=== PATIENT | female | born 1940 | race Caucasian/White ===

== ENCOUNTER 2019-09-01 08:06 | Outpatient (RCR) | payer MEDICARE, SELFPAY ==
[2019-09-01 08:46] LABS: Basophils % 0.8 %; Eosinophils # 0.1 10^3/uL (0.0-0.8); Eosinophils % 2.6 %; Hematocrit 43.7 % (37.0-47.0); Hemoglobin 14.5 g/dL (11.5-15.3); Lymphocytes # 1.6 10^3/uL (0.8-4.8); Lymphocytes % 30.1 %; Mean Corpuscular HGB Conc 33.2 g/dL (30.0-36.0); Mean Corpuscular Hemoglobin 31.4 pg (28.0-34.0); Mean Corpuscular Volume 94.6 fL (81-99); Mean Platelet Volume 10.1 fL (7.4-10.4); Monocytes # 0.4 10^3/uL (0.2-0.9); Monocytes % 7.7 %; Neutrophils # 3.1 10^3/uL (1.8-7.7); Neutrophils % 58.2 %; Nucleated Red Blood Cells % 0 %; Platelet Count 215 10^3/cmm (130-400); Red Blood Count 4.62 10^6/uL (4.1-5.3); Red Cell Distribution Width 13.2 % (12.1-15.1); White Blood Count 5.3 10^3/uL (4.0-10.0)
[2019-09-01 08:59] LABS: Alanine Aminotransferase 14 U/L (0-33); Albumin Level 4.7 g/dL (3.5-5.2); Alkaline Phosphatase 56 IU/L (35-105); Anion Gap 14.6 (5-19); Aspartate Amino Transferase 15 U/L (0-32); Blood Urea Nitrogen 15 mg/dL (8-23); Calcium 10.1 mg/Dl (8.8-10.2); Carbon Dioxide 30 mmol/L (22-29); Chloride 99 mmol/L (98-107); Globulin 2.4 g/dL (1.3-4.6); Glucose 117 mg/dL (74-106); Potassium 3.6 mmol/L (3.5-5.1); Sodium 140 mmol/L (136-145); Total Protein 7.1 g/dL (6.6-8.7)
--- NOTE | 2019-09-01 12:52 | ONC FU_ITS ---
Dr. Hansen follow up note Patient: Yuly Burris Unit #: [id number]: 1940 Dicatated By: Katalina Hansen M.D.Date of Visit:Sep 01, 2019 Onc Med Follow-up/Prog Note History of Present Illness: Mr. Sandra Hwang, is a 78-year-old female who recently noticed mass in her right breast about 3 months ago underwent bilateral mammogram with right breast sonogram on 09/16/2018 which showed BI-RADS Category 5 suggestive of multifocal malignancy of right breast e.g. 12:00 position right breast, near nipple is shadowing hypoechoic mass with irregular margins 1.6 x 1.6 x 2.2 cm. 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 ER/GA HER-2/vahid negative. X Patient denies any nipple discharge or retraction. But recently started having right subscapular pain/discomfort and no history of trauma to her right upper back. CT PET scan done on 10/29/2018 showed there is a 1.2 x 1.6 cm sub-areolar right breast lesion with SUV of 4.5 and no other breast lesion or distant metastases seen. Patient underwent right simple mastectomy with right axillary sentinel lymph node biopsy on 11/03/2018 and final pathology report showed multifocal disease first tumor, infiltrating ductal carcinoma with prominent DCIS size of tumor 2.5 x 1.5 cm with clear margin Second tumor infiltrating ductal carcinoma size of tumor 1 x 1 cm with clear margin her tumor infiltrating ductal carcinoma with prominent DCIS complement size of tumor 1.3 x 0.7 cm with clear margins 0 out of 3 exited lymph node showed metastatic disease. As a standard of care, Patient was offered adjuvant chemotherapy, but patient declined AGAINST MEDICAL ADVICE knowing the risk versus benefits Patient has history of hormonal supplement with Premarin for 10 years now she is completely off for the last 3 years, she has history of hysterectomy Came for follow-up, denies any specific complaints, no nausea vomiting, no fever or chills, no diarrhea constipation, no new bony pains, no jaundice, no headaches or blurred vision double vision Medications: Calcium 500 + D 1 Tablet (of 500-125 mg - Units) Oral daily, Glucosamine 1 Tablet Oral daily, HydroCHLOROthiazide 1 Tablet (of 12.5 mg) Oral daily, Multiple Vitamins/Womens 1 Tablet Oral daily, Red Yeast Rice 1 Capsule (of 600 mg) Oral daily Allergies: No Known Allergies. Review of Systems: Constitutional - Appetite is good and weight is stable, ENMT - No sinus congestion/drainage. No mouth sores. No sore throat or difficulty swallowing, Hematologic/Lymphatic - Pt reports that she bruises easily, Respiratory - No shortness of breath. No cough. No pleuritic pain or hemoptysis, Cardiovascular - No angina pain. No palpitations, Gastrointestinal - No nausea or vomiting. No heartburn or acid reflux. No diarrhea or constipation. No blood in the stool or black stools, Genitourinary (F) - No dysuria or hematuria. No urinary frequency. No urgency or incontinence, Musculoskeletal - No joint or bone pain, Neurologic - No headache or dizziness. No numbness/paresthesias or other focal neurologic symptoms, Psychiatric - Positive for anxiety and depression. No insomnia. Vital Signs: Performed on Sep 01, 2019 09:51 Height - 65.00 in Weight - 161.6 lbs (HIGH) BSA - 1.81 sq.m BMI - 26.89 Temperature - 98.0 F (LOW) Pulse - 78 /min Respiration - 20 /min BP - 156/82 mm(hg) (HIGH) O2 Sat - 92 % (LOW) Pain - 0 Performance Status: 0 - Fully active, able to carry on all predisease activities without restrictions. (ECOG) Physical Examination: Respiratory - Lungs are clear to auscultation without rhonchi or wheezing, Cardiovascular - regular rate and rythem, Extremities - no edema. Lab/Imaging: Most recent lab results are not available for this patient. 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 And all of them were triple negative e.g. ER/GA negative, HER-2/vahid negative. CT PET scan done on 10/29/2018 showed 1.2 x 1.6 cm subareolar right breast lesion with SUV 4.5, no other breast lesion or distant metastases seen. Status post right simple mastectomy with axillary lymph node dissection final pathology report showed multifocal disease First tumor with prominent these his complaint, 2.5 x 1.5 cm with a clear margin Second tumor infiltrating ductal carcinoma, 1.0 x 1.0 cm clear margins T2 Her tumor infiltrating ductal carcinoma, with prominent DCIS component 1.3 x 0.7 cm, with clear margins next 0 out of 3 right axillary lymph node nodes showed metastatic disease N0 Right subscapular pain/discomfort for the last 2 months etiology could be muscular skeleton but metastatic disease cannot be ruled out. Being with triple negative disease Patient was offered adjuvant chemotherapy but patient declined and AGAINST MEDICAL ADVICE rather preferred observation alone Plan: Discussed with patient regarding her labs white blood count 5.3 hemoglobin 14.5 crit 43.7 platelets 215,000 CMP within normal limits Clinically, patient doing well, no signs symptom suggestive of recurrence of disease. Patient has triple negative breast cancer and declined adjuvant chemotherapy rather opted for observation alone, now being observed with no signs symptom suggestive of recurrence of disease and lab workup showed no abnormality. We'll continue to monitor she will return to clinic in 6 months with CMP only unless patient dropped new symptoms. Signed By: Katalina Hansen M.D. <<Signature on File>>
== END 2019-09-22 23:59 | disposition home or self-care (01) ==
LOC: ONCMED 08:06
PROVIDERS: Family Provider Family Medicine; PCP Family Medicine; Visit Provider Internal Medicine Hematology & Oncology
DX: C50.811 Malignant neoplasm of overlapping sites of right female breast (principal); Z17.1 Estrogen receptor negative status [ER-]; Z53.29 Procedure and treatment not carried out because of patient's decision for other reasons; Z90.11 Acquired absence of right breast and nipple
CPT/HCPCS: 80053; 85025; 99213; G0463

== ENCOUNTER 2020-03-01 09:22 | Outpatient (CLI) | payer MEDICARE, SELFPAY ==
[2020-03-01 10:03] LABS: Basophils # 0.1 10^3/uL (0.0-0.1); Eosinophils # 0.1 10^3/uL (0.0-0.8); Eosinophils % 1.7 %; Hematocrit 42.6 % (37.0-47.0); Hemoglobin 13.8 g/dL (11.5-15.3); Lymphocytes # 1.3 10^3/uL (0.8-4.8); Mean Corpuscular HGB Conc 32.4 g/dL (30.0-36.0); Mean Corpuscular Hemoglobin 30.3 pg (28.0-34.0); Mean Corpuscular Volume 93.4 fL (81-99); Monocytes # 0.4 10^3/uL (0.2-0.9); Monocytes % 7.8 %; Neutrophils # 2.97 10^3/uL (1.8-7.7); Neutrophils % 62.3 %; Nucleated Red Blood Cells % 0 %; Platelet Count 206 10^3/cmm (130-400); Red Blood Count 4.56 10^6/uL (4.1-5.3); Red Cell Distribution Width 13.2 % (12.1-15.1); White Blood Count 4.8 10^3/uL (4.0-10.0)
[2020-03-01 10:17] LABS: Alanine Aminotransferase 14 U/L (0-33); Albumin Level 4.6 g/dL (3.5-5.2); Alkaline Phosphatase 52 IU/L (35-105); Anion Gap 13.6 (5-19); Aspartate Amino Transferase 16 U/L (0-32); Blood Urea Nitrogen 13 mg/dL (8-23); Calcium 9.9 mg/dL (8.5-10.5); Carbon Dioxide 28 mmol/L (22-29); Chloride 104 mmol/L (98-107); Globulin 2.6 g/dL (1.3-4.6); Glucose 116 mg/dL (65-115); Osmolality Calculated 291 mOsm/kg (285-295); Potassium 3.6 mmol/L (3.5-5.1); Sodium 142 mmol/L (136-145); Total Bilirubin 1.1 mg/dL (0.15-1.2); Total Protein 7.2 g/dL (6.6-8.7)
--- NOTE | 2020-03-01 11:36 | ONC FU_ITS ---
Dr. Hansen follow up note Patient: Yuly Burris Unit #: [id number]: 1940 Dicatated By: Katalina Hansen M.D.Date of Visit:Mar 01, 2020 Onc Med Follow-up/Prog Note History of Present Illness: Mr. Sandra Hwang, is a 79-year-old female who recently noticed mass in her right breast about 3 months ago underwent bilateral mammogram with right breast sonogram on 09/16/2018 which showed BI-RADS Category 5 suggestive of multifocal malignancy of right breast e.g. 12:00 position right breast, near nipple is shadowing hypoechoic mass with irregular margins 1.6 x 1.6 x 2.2 cm. 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 ER/AK HER-2/vahid negative. X Patient denies any nipple discharge or retraction. But recently started having right subscapular pain/discomfort and no history of trauma to her right upper back. CT PET scan done on 10/29/2018 showed there is a 1.2 x 1.6 cm sub-areolar right breast lesion with SUV of 4.5 and no other breast lesion or distant metastases seen. Patient underwent right simple mastectomy with right axillary sentinel lymph node biopsy on 11/03/2018 and final pathology report showed multifocal disease first tumor, infiltrating ductal carcinoma with prominent DCIS size of tumor 2.5 x 1.5 cm with clear margin Second tumor infiltrating ductal carcinoma size of tumor 1 x 1 cm with clear margin her tumor infiltrating ductal carcinoma with prominent DCIS complement size of tumor 1.3 x 0.7 cm with clear margins 0 out of 3 exited lymph node showed metastatic disease. As a standard of care, Patient was offered adjuvant chemotherapy, but patient declined AGAINST MEDICAL ADVICE knowing the risk versus benefits Patient has history of hormonal supplement with Premarin for 10 years now she is completely off for the last 3 years, she has history of hysterectomy Came for follow-up, denies any specific complaints today, no fever chills, no nausea or vomiting, no new bony pains, appetite is good but lost some weight because of watching diet and exercising regularly. No jaundice no headaches blurred vision or double vision. Medications: Calcium 500 + D 1 Tablet (of 500-125 mg - Units) Oral daily, Glucosamine 1 Tablet Oral daily, HydroCHLOROthiazide 1 Tablet (of 12.5 mg) Oral daily, Multiple Vitamins/Womens 1 Tablet Oral daily, Red Yeast Rice 1 Capsule (of 600 mg) Oral daily Allergies: No Known Allergies. Review of Systems: Constitutional - Appetite is good and weight is stable, ENMT - No sinus congestion/drainage. No mouth sores. No sore throat or difficulty swallowing, Hematologic/Lymphatic - Pt reports that she bruises easily, Respiratory - No shortness of breath. No cough. No pleuritic pain or hemoptysis, Cardiovascular - No angina pain. No palpitations, Gastrointestinal - No nausea or vomiting. No heartburn or acid reflux. No diarrhea or constipation. No blood in the stool or black stools, Genitourinary (F) - No dysuria or hematuria. No urinary frequency. No urgency or incontinence, Musculoskeletal - No joint or bone pain, Neurologic - No headache or dizziness. No numbness/paresthesias or other focal neurologic symptoms, Psychiatric - Positive for anxiety and depression. No insomnia. Vital Signs: Performed on Mar 01, 2020 11:11 Height - 65.00 in Weight - 150.8 lbs (LOW) BSA - 1.75 sq.m BMI - 25.09 Temperature - 97.6 F (LOW) Pulse - 90 /min Respiration - 16 /min BP - 173/85 mm(hg) (HIGH) O2 Sat - 95 % (LOW) Pain - 0 Performance Status: 0 - Fully active, able to carry on all predisease activities without restrictions. (ECOG) Physical Examination: Respiratory - Lungs are clear, Cardiovascular - Regular rate and rhythm of heart, Gastrointestinal - Soft, bowel sounds present, Extremities - No visible edema No axillary lymphadenopathy, no obvious L breast mass. Lab/Imaging: Most recent lab results are not available for this patient. 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 And all of them were triple negative e.g. ER/AK negative, HER-2/vahid negative. CT PET scan done on 10/29/2018 showed 1.2 x 1.6 cm subareolar right breast lesion with SUV 4.5, no other breast lesion or distant metastases seen. Status post right simple mastectomy with axillary lymph node dissection final pathology report showed multifocal disease First tumor with prominent these his complaint, 2.5 x 1.5 cm with a clear margin Second tumor infiltrating ductal carcinoma, 1.0 x 1.0 cm clear margins T2 Her tumor infiltrating ductal carcinoma, with prominent DCIS component 1.3 x 0.7 cm, with clear margins next 0 out of 3 right axillary lymph node nodes showed metastatic disease N0 Right subscapular pain/discomfort for the last 2 months etiology could be muscular skeleton but metastatic disease cannot be ruled out. Being with triple negative disease Patient was offered adjuvant chemotherapy but patient declined and AGAINST MEDICAL ADVICE rather preferred observation alone Plan: Discussed with patient regarding her labs white blood count 4.8 hemoglobin 13.8 crit 42.6 platelets 206,000 CMP within normal limits Clinically, patient is doing well with no signs symptoms suggestive of recurrence of disease. Now being monitored. She will return to clinic in 6 months with CBC CMP and follow-up mammogram Signed By: Katalina Hansen M.D. <<Signature on File>>
== END 2020-03-01 09:23 | disposition home or self-care (01) ==
LOC: ONCMED 09:26
PROVIDERS: PCP Family Medicine; Visit Provider Internal Medicine Hematology & Oncology
DX: Z08 Encounter for follow-up examination after completed treatment for malignant neoplasm (principal); Z85.3 Personal history of malignant neoplasm of breast; Z90.11 Acquired absence of right breast and nipple; Z91.14 Patient's other noncompliance with medication regimen
CPT/HCPCS: 36415; 80053; 85025; G0463

== ENCOUNTER 2020-09-02 08:19 | Outpatient (CLI) | payer MEDICARE, SELFPAY ==
[2020-09-02 08:43] LABS: Basophils # 0.1 10^3/uL (0.0-0.1); Basophils % 0.9 %; Eosinophils # 0.1 10^3/uL (0.0-0.8); Eosinophils % 2.6 %; Hemoglobin 14.6 g/dL (11.5-15.3); Lymphocytes # 1.6 10^3/uL (0.8-4.8); Lymphocytes % 29.6 %; Mean Corpuscular HGB Conc 32.4 g/dL (30.0-36.0); Mean Corpuscular Volume 92.4 fL (81-99); Mean Platelet Volume 9.8 fL (7.4-10.4); Monocytes # 0.4 10^3/uL (0.2-0.9); Monocytes % 7.1 %; Neutrophils # 3.19 10^3/uL (1.8-7.7); Neutrophils % 59.4 %; Nucleated Red Blood Cells % 0 %; Platelet Count 209 10^3/cmm (130-400); Red Blood Count 4.87 10^6/uL (4.1-5.3); Red Cell Distribution Width 13.1 % (12.1-15.1); White Blood Count 5.4 10^3/uL (4.0-10.0)
[2020-09-02 09:01] LABS: Alanine Aminotransferase 15 U/L (0-33); Albumin Level 4.5 g/dL (3.5-5.2); Alkaline Phosphatase 60 IU/L (35-105); Anion Gap 14.7 (5-19); Aspartate Amino Transferase 14 U/L (0-32); Blood Urea Nitrogen 17 mg/dL (8-23); Calcium 9.5 mg/dL (8.5-10.5); Carbon Dioxide 28 mmol/L (22-29); Chloride 101 mmol/L (98-107); Globulin 2.9 g/dL (1.3-4.6); Glucose 115 mg/dL (65-115); Osmolality Calculated 292 mOsm/kg (285-295); Potassium 3.7 mmol/L (3.5-5.1); Sodium 140 mmol/L (136-145); Total Bilirubin 0.8 mg/dL (0.15-1.2); Total Protein 7.4 g/dL (6.6-8.7)
--- NOTE | 2020-09-02 14:38 | ONC FU_ITS ---
Dr. Hansen follow up note Patient: Yuly Burris Unit #: [id number]: 1940 Dicatated By: Katalina Hansen M.D.Date of Visit:Sep 02, 2020 Onc Med Follow-up/Prog Note History of Present Illness: Mr. Sandra Hwang, is a 79-year-old female who recently noticed mass in her right breast about 3 months ago underwent bilateral mammogram with right breast sonogram on 09/16/2018 which showed BI-RADS Category 5 suggestive of multifocal malignancy of right breast e.g. 12:00 position right breast, near nipple is shadowing hypoechoic mass with irregular margins 1.6 x 1.6 x 2.2 cm. 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 ER/NC HER-2/vahid negative. X Patient denies any nipple discharge or retraction. But recently started having right subscapular pain/discomfort and no history of trauma to her right upper back. CT PET scan done on 10/29/2018 showed there is a 1.2 x 1.6 cm sub-areolar right breast lesion with SUV of 4.5 and no other breast lesion or distant metastases seen. Patient underwent right simple mastectomy with right axillary sentinel lymph node biopsy on 11/03/2018 and final pathology report showed multifocal disease first tumor, infiltrating ductal carcinoma with prominent DCIS size of tumor 2.5 x 1.5 cm with clear margin Second tumor infiltrating ductal carcinoma size of tumor 1 x 1 cm with clear margin her tumor infiltrating ductal carcinoma with prominent DCIS complement size of tumor 1.3 x 0.7 cm with clear margins 0 out of 3 exited lymph node showed metastatic disease. As a standard of care, Patient was offered adjuvant chemotherapy, but patient declined AGAINST MEDICAL ADVICE knowing the risk versus benefits Patient has history of hormonal supplement with Premarin for 10 years now she is completely off for the last 3 years, she has history of hysterectomy Came for follow-up, denies any specific complaints, no fever chills, no nausea or vomiting, no diarrhea or constipation, no new bony pains, Appetite is good, weight is stable Medications: Calcium 500 + D 1 Tablet (of 500-125 mg - Units) Oral daily, Glucosamine 1 Tablet Oral daily, HydroCHLOROthiazide 1 Tablet (of 12.5 mg) Oral daily, Multiple Vitamins/Womens 1 Tablet Oral daily, Red Yeast Rice 1 Capsule (of 600 mg) Oral daily Allergies: No Known Allergies. Review of Systems: Review of Systems is not available for this patient. Vital Signs: Performed on Sep 02, 2020 10:02 Height - 65.00 in Weight - 158.7 lbs (HIGH) BSA - 1.79 sq.m BMI - 26.41 Temperature - 97.9 F (LOW) Pulse - 83 /min Respiration - 18 /min BP - 199/97 mm(hg) (HIGH) O2 Sat - 96 % Pain - 0 Performance Status: 0 - Fully active, able to carry on all predisease activities without restrictions. (ECOG) Physical Examination: Respiratory - Lungs are clear to auscultation, Cardiovascular - Regular rate and rhythm of heart, Gastrointestinal - Soft, bowel sounds present, Extremities - No visible edema. Lab/Imaging: Most recent lab results are not available for this patient. 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 And all of them were triple negative e.g. ER/NC negative, HER-2/vahid negative. CT PET scan done on 10/29/2018 showed 1.2 x 1.6 cm subareolar right breast lesion with SUV 4.5, no other breast lesion or distant metastases seen. Status post right simple mastectomy with axillary lymph node dissection final pathology report showed multifocal disease First tumor with prominent these his complaint, 2.5 x 1.5 cm with a clear margin Second tumor infiltrating ductal carcinoma, 1.0 x 1.0 cm clear margins T2 Her tumor infiltrating ductal carcinoma, with prominent DCIS component 1.3 x 0.7 cm, with clear margins next 0 out of 3 right axillary lymph node nodes showed metastatic disease N0 Right subscapular pain/discomfort for the last 2 months etiology could be muscular skeleton but metastatic disease cannot be ruled out. Being with triple negative disease Patient was offered adjuvant chemotherapy but patient declined and AGAINST MEDICAL ADVICE rather preferred observation alone Plan: Discussed with patient regarding her labs white blood count 5.4 hemoglobin 14.6 hematocrit 45 platelets 209,000 CMP within normal limits Clinically, patient doing well with no new signs symptoms just of recurrence of disease. Patient was supposed to get follow-up mammogram prior to this visit but somehow it was not scheduled, we will schedule her mammogram and then she will return to clinic in 6 months with CBC CMP. Signed By: Katalina Hansen M.D. <<Signature on File>>
== END 2020-09-02 08:20 | disposition home or self-care (01) ==
PROVIDERS: PCP Family Medicine; Visit Provider Internal Medicine Hematology & Oncology
DX: C50.811 Malignant neoplasm of overlapping sites of right female breast (principal); Z17.1 Estrogen receptor negative status [ER-]; Z90.11 Acquired absence of right breast and nipple
CPT/HCPCS: 36415; 80053; 85025; G0463

== ENCOUNTER 2020-09-17 10:08 | Outpatient (CLI) | payer MEDICARE, SELFPAY ==
--- NOTE | 2020-09-17 10:14 | MM_ITS ---
WS: [id number] DIAGNOSTIC LEFT DIGITAL MAMMOGRAM WITH CAD HISTORY: HX RT BREAST CA COMPARISON: 09/16/2018 and 12/20/2014 Technique: CC, MLO and ML views. Breast composition: There are scattered areas of fibroglandular density. Normal fibroglandular patte rn. Benign breast arterial calcifications. MM/[place] [id number] IMPRESSION: BI-RADS: 2-Benign FOLLOW UP: 1 Year Follow-up
== END 2020-09-17 10:09 | disposition home or self-care (01) ==
LOC: RADSHAW 10:12
PROVIDERS: PCP Family Medicine; Visit Provider Internal Medicine Hematology & Oncology
DX: Z85.3 Personal history of malignant neoplasm of breast (principal)
CPT/HCPCS: 77065

== ENCOUNTER 2021-03-12 11:29 | Outpatient (CLI) | payer MEDICARE, SELFPAY ==
[2021-03-12 12:20] LABS: Basophils % 0.8 %; Eosinophils # 0.1 10^3/uL (0.0-0.8); Eosinophils % 2.2 %; Hematocrit 42.1 % (37.0-47.0); Hemoglobin 13.7 g/dL (11.5-15.3); Lymphocytes # 1.5 10^3/uL (0.8-4.8); Lymphocytes % 29.6 %; Mean Corpuscular HGB Conc 32.5 g/dL (30.0-36.0); Mean Corpuscular Hemoglobin 30.4 pg (28.0-34.0); Mean Corpuscular Volume 93.3 fL (81-99); Mean Platelet Volume 10.5 fL (7.4-10.4); Monocytes # 0.4 10^3/uL (0.2-0.9); Monocytes % 7.9 %; Neutrophils # 2.97 10^3/uL (1.8-7.7); Neutrophils % 58.9 %; Nucleated Red Blood Cells % 0 %; Platelet Count 213 10^3/cmm (130-400); Red Blood Count 4.51 10^6/uL (4.1-5.3); Red Cell Distribution Width 13.4 % (12.1-15.1)
[2021-03-12 12:40] LABS: Alanine Aminotransferase 14 U/L (0-33); Albumin Level 4.3 g/dL (3.5-5.2); Alkaline Phosphatase 52 IU/L (35-105); Anion Gap 13.7 (5-19); Aspartate Amino Transferase 14 U/L (0-32); Blood Urea Nitrogen 16 mg/dL (8-23); Calcium 8.9 mg/dL (8.5-10.5); Carbon Dioxide 30 mmol/L (22-29); Chloride 101 mmol/L (98-107); Globulin 2.6 g/dL (1.3-4.6); Glucose 98 mg/dL (65-115); Osmolality Calculated 293 mOsm/kg (285-295); Potassium 3.7 mmol/L (3.5-5.1); Sodium 141 mmol/L (136-145); Total Bilirubin 0.9 mg/dL (0.15-1.2); Total Protein 6.9 g/dL (6.6-8.7)
--- NOTE | 2021-03-12 14:01 | ONC FU_ITS ---
Dr. Hansen follow up note Patient: Yuly Burris Unit #: [id number]: 1940 Dicatated By: Katalina Hansen M.D.Date of Visit:Mar 12, 2021 Onc Med Follow-up/Prog Note History of Present Illness: Mr. Sandra Hwang, is a 80-year-old female who recently noticed mass in her right breast about 3 months ago underwent bilateral mammogram with right breast sonogram on 09/16/2018 which showed BI-RADS Category 5 suggestive of multifocal malignancy of right breast e.g. 12:00 position right breast, near nipple is shadowing hypoechoic mass with irregular margins 1.6 x 1.6 x 2.2 cm. 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 ER/CT HER-2/vahid negative. X Patient denies any nipple discharge or retraction. But recently started having right subscapular pain/discomfort and no history of trauma to her right upper back. CT PET scan done on 10/29/2018 showed there is a 1.2 x 1.6 cm sub-areolar right breast lesion with SUV of 4.5 and no other breast lesion or distant metastases seen. Patient underwent right simple mastectomy with right axillary sentinel lymph node biopsy on 11/03/2018 and final pathology report showed multifocal disease first tumor, infiltrating ductal carcinoma with prominent DCIS size of tumor 2.5 x 1.5 cm with clear margin Second tumor infiltrating ductal carcinoma size of tumor 1 x 1 cm with clear margin her tumor infiltrating ductal carcinoma with prominent DCIS complement size of tumor 1.3 x 0.7 cm with clear margins 0 out of 3 exited lymph node showed metastatic disease. As a standard of care, Patient was offered adjuvant chemotherapy, but patient declined AGAINST MEDICAL ADVICE knowing the risk versus benefits Patient has history of hormonal supplement with Premarin for 10 years now she is completely off for the last 3 years, she has history of hysterectomy Follow-up mammogram done on 09/17/2020 showed BI-RADS 2 benign, Came for follow-up, denies any specific complaints, no fever chills, no nausea or vomiting, no diarrhea constipation, no new bony pains, appetite is good Medications: Calcium 500 + D 1 Tablet (of 500-125 mg - Units) Oral daily, Glucosamine 1 Tablet Oral daily, HydroCHLOROthiazide 1 Tablet (of 12.5 mg) Oral daily, Multiple Vitamins/Womens 1 Tablet Oral daily, Red Yeast Rice 1 Capsule (of 600 mg) Oral daily Allergies: No Known Allergies. Review of Systems: Review of Systems is not available for this patient. Vital Signs: Vitals are not available for this patient. Performance Status: 0 - Fully active, able to carry on all predisease activities without restrictions. (ECOG) Physical Examination: Respiratory - Lungs are clear to auscultation, Cardiovascular - Regular rate and rhythm of heart, Gastrointestinal - Soft, bowel sounds present, Extremities - No visible edema. Lab/Imaging: Most recent lab results are not available for this patient. 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 And all of them were triple negative e.g. ER/CT negative, HER-2/vahid negative. CT PET scan done on 10/29/2018 showed 1.2 x 1.6 cm subareolar right breast lesion with SUV 4.5, no other breast lesion or distant metastases seen. Status post right simple mastectomy with axillary lymph node dissection final pathology report showed multifocal disease First tumor with prominent these his complaint, 2.5 x 1.5 cm with a clear margin Second tumor infiltrating ductal carcinoma, 1.0 x 1.0 cm clear margins T2 Her tumor infiltrating ductal carcinoma, with prominent DCIS component 1.3 x 0.7 cm, with clear margins next 0 out of 3 right axillary lymph node nodes showed metastatic disease N0 Right subscapular pain/discomfort for the last 2 months etiology could be muscular skeleton but metastatic disease cannot be ruled out. Being with triple negative disease Patient was offered adjuvant chemotherapy but patient declined and AGAINST MEDICAL ADVICE rather preferred observation alone Plan: Discussed with patient regarding her labs white blood count 5 hemoglobin 13.7 hematocrit 42.1 platelets 213,000 CMP within normal limits and follow-up mammogram done in August 2020 showed BI-RADS 2, benign Clinically, patient doing well with no new signs symptom suggestive of recurrence of disease, her lab work-up is within normal range, patient will return to clinic in 6 months with yearly follow-up mammogram and CBC and CMP Signed By: Katalina Hansen M.D. <<Signature on File>>
== END 2021-03-12 11:30 | disposition home or self-care (01) ==
LOC: ONCMED 11:31
PROVIDERS: PCP Family Medicine; Visit Provider Internal Medicine Hematology & Oncology
DX: Z08 Encounter for follow-up examination after completed treatment for malignant neoplasm (principal); Z85.3 Personal history of malignant neoplasm of breast; Z90.11 Acquired absence of right breast and nipple; Z79.899 Other long term (current) drug therapy
CPT/HCPCS: 36415; 80053; 85025; 99214

== ENCOUNTER 2021-08-26 09:10 | Outpatient (CLI) | payer MEDICARE, SELFPAY ==
--- NOTE | 2021-08-26 09:16 | MM_ITS ---
WS: [id number] LEFT DIGITAL MAMMOGRAPHY WITH CAD CLINICAL INFORMATION: HX OF BREAST CA;RT MAST COMPARISON: September 17, 2020 TECHNIQUE: 3 views of the left breast were obtained. FINDINGS: Scattered fibroglandular densities of the left breast. Vascular calcification. Stable punctate and cl ustered calcifications. No suspicious focal mass, asymmetry, calcifications, or architectural distortion. No evidence of eva gnancy. MM/[place] [id number] IMPRESSION: BI-RADS: 2-Benign FOLLOW UP: 1 Year Follow-up Recommend return to annual diagnostic mammography.
== END 2021-08-26 09:11 | disposition home or self-care (01) ==
LOC: RADSHAW 09:14
PROVIDERS: PCP Family Medicine; Visit Provider Internal Medicine Hematology & Oncology
DX: Z85.3 Personal history of malignant neoplasm of breast (principal); Z90.11 Acquired absence of right breast and nipple
CPT/HCPCS: 77065

== ENCOUNTER 2021-09-12 09:23 | Outpatient (CLI) | payer MEDICARE, SELFPAY ==
[2021-09-12 09:44] LABS: Basophils % 0.6 %; Eosinophils # 0.1 10^3/uL (0.0-0.8); Eosinophils % 2.3 %; Hematocrit 42.9 % (37.0-47.0); Hemoglobin 13.9 g/dL (11.5-15.3); Lymphocytes # 1.3 10^3/uL (0.8-4.8); Lymphocytes % 25.7 %; Mean Corpuscular HGB Conc 32.4 g/dL (30.0-36.0); Mean Corpuscular Hemoglobin 30.3 pg (28.0-34.0); Mean Corpuscular Volume 93.7 fl (81-99); Mean Platelet Volume 9.7 fL (7.4-10.4); Monocytes # 0.4 10^3/uL (0.2-0.9); Monocytes % 8.2 %; Neutrophils # 3.21 10^3/uL (1.8-7.7); Neutrophils % 62.4 %; Nucleated Red Blood Cells % 0 %; Platelet Count 248 10^3/cmm (130-400); Red Blood Count 4.58 10^6/uL (4.1-5.3); Red Cell Distribution Width 13.2 % (12.1-15.1); White Blood Count 5.1 10^3/uL (4.0-10.0)
[2021-09-12 10:16] LABS: Alanine Aminotransferase 16 U/L (0-33); Albumin Level 4.3 g/dL (3.5-5.2); Alkaline Phosphatase 58 IU/L (35-105); Aspartate Amino Transferase 16 U/L (0-32); Blood Urea Nitrogen 15 mg/dL (8-23); Carbon Dioxide 27 mmol/L (22-29); Globulin 2.8 g/dL (1.3-4.6); Glucose 93 mg/dL (65-115); Total Bilirubin 0.7 mg/dL (0.15-1.2); Total Protein 7.1 g/dL (6.6-8.7)
[2021-09-12 10:34] LABS: Anion Gap 15.8 (5-19); Chloride 99 mmol/L (98-107); Osmolality Calculated 287 mOsm/kg (285-295); Potassium 3.8 mmol/L (3.5-5.1); Sodium 138 mmol/L (136-145)
--- NOTE | 2021-09-12 11:21 | ONC FU_ITS ---
Dr. Hansen follow up note Patient: Yuly Burris Unit #: [id number]: [id number] Dicatated By: Katalina Hansen M.D.Date of Visit:Sep 12, 2021 Onc Med Follow-up/Prog Note History of Present Illness: Mr. Sandra Hwang, is a 80-year-old female who recently noticed mass in her right breast about 3 months ago underwent bilateral mammogram with right breast sonogram on 09/16/2018 which showed BI-RADS Category 5 suggestive of multifocal malignancy of right breast e.g. 12:00 position right breast, near nipple is shadowing hypoechoic mass with irregular margins 1.6 x 1.6 x 2.2 cm. 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 ER/OR HER-2/vahid negative. X Patient denies any nipple discharge or retraction. But recently started having right subscapular pain/discomfort and no history of trauma to her right upper back. CT PET scan done on 10/29/2018 showed there is a 1.2 x 1.6 cm sub-areolar right breast lesion with SUV of 4.5 and no other breast lesion or distant metastases seen. Patient underwent right simple mastectomy with right axillary sentinel lymph node biopsy on 11/03/2018 and final pathology report showed multifocal disease first tumor, infiltrating ductal carcinoma with prominent DCIS size of tumor 2.5 x 1.5 cm with clear margin Second tumor infiltrating ductal carcinoma size of tumor 1 x 1 cm with clear margin her tumor infiltrating ductal carcinoma with prominent DCIS complement size of tumor 1.3 x 0.7 cm with clear margins 0 out of 3 exited lymph node showed metastatic disease. As a standard of care, Patient was offered adjuvant chemotherapy, but patient declined AGAINST MEDICAL ADVICE knowing the risk versus benefits Patient has history of hormonal supplement with Premarin for 10 years now she is completely off for the last 3 years, she has history of hysterectomy Follow-up mammogram done on 09/17/2020 showed BI-RADS 2 benign, Mammogram done on August 26, 2021 shows BI-RADS 2, benign Came for follow-up, denies any specific complaints, no fever chills, no nausea or vomiting, no diarrhea or constipation, no new bony pains, no weight loss, appetite is good, no jaundice, patient is enjoying quality of life Medications: Calcium 500 + D 1 Tablet (of 500-125 mg - Units) Oral daily, Glucosamine 1 Tablet Oral daily, HydroCHLOROthiazide 1 Tablet (of 12.5 mg) Oral daily, Multiple Vitamins/Womens 1 Tablet Oral daily, Red Yeast Rice 1 Capsule (of 600 mg) Oral daily Allergies: No Known Allergies. Review of Systems: Review of Systems is not available for this patient. Vital Signs: Performed on Sep 12, 2021 11:03 Height - 65.00 in Weight - 146.8 lbs (LOW) BSA - 1.73 sq.m BMI - 24.43 Temperature - 97.4 F (LOW) Pulse - 94 /min Respiration - 18 /min BP - 183/83 mm(hg) (HIGH) O2 Sat - 96 % Pain - 0 Fatigue - 0 Performance Status: 0 - Fully active, able to carry on all predisease activities without restrictions. (ECOG) Physical Examination: Respiratory - Lungs are clear to auscultation, Cardiovascular - Regular rate and rhythm of heart, Gastrointestinal - Soft, bowel sounds present, Extremities - No visible edema. Lab/Imaging: Most recent lab results are not available for this patient. 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 And all of them were triple negative e.g. ER/OR negative, HER-2/vahid negative. CT PET scan done on 10/29/2018 showed 1.2 x 1.6 cm subareolar right breast lesion with SUV 4.5, no other breast lesion or distant metastases seen. Status post right simple mastectomy with axillary lymph node dissection final pathology report showed multifocal disease First tumor with prominent these his complaint, 2.5 x 1.5 cm with a clear margin Second tumor infiltrating ductal carcinoma, 1.0 x 1.0 cm clear margins T2 Her tumor infiltrating ductal carcinoma, with prominent DCIS component 1.3 x 0.7 cm, with clear margins next 0 out of 3 right axillary lymph node nodes showed metastatic disease N0 Right subscapular pain/discomfort for the last 2 months etiology could be muscular skeleton but metastatic disease cannot be ruled out. Being with triple negative disease Patient was offered adjuvant chemotherapy but patient declined and AGAINST MEDICAL ADVICE rather preferred observation alone Follow-up mammogram done on August 26, 2021, showed BI-RADS 2, benign Plan: Discussed with patient regarding her labs white blood count 5.1 hemoglobin 13.9 hematocrit 42.9 platelets 248,000 CMP within normal limits Clinically, patient doing well with no new signs symptoms history of recurrence of disease, her lab work-up is within normal range her follow-up mammogram shows no abnormality, will continue to monitor with yearly mammogram, and return to clinic in 6 months with CBC CMP Signed By: Katalina Hansen M.D. <<Signature on File>>
== END 2021-09-12 09:24 | disposition home or self-care (01) ==
LOC: ONCMED 09:26
PROVIDERS: PCP Family Medicine; Visit Provider Internal Medicine Hematology & Oncology
DX: C50.911 Malignant neoplasm of unspecified site of right female breast (principal)
CPT/HCPCS: 36415; 80053; 85025; 99214

== ENCOUNTER 2022-04-24 08:57 | Oncology outpatient (recurring) (ONCR) | payer MEDICARE, SELFPAY ==
[2022-04-24 09:15] LABS: Basophils # 0.1 10^3/uL (0.0-0.1); Basophils % 0.9 %; Eosinophils # 0.1 10^3/uL (0.0-0.8); Hematocrit 42.3 % (37.0-47.0); Hemoglobin 13.9 g/dL (11.5-15.3); Lymphocytes # 1.5 10^3/uL (0.8-4.8); Lymphocytes % 27.1 %; Mean Corpuscular HGB Conc 32.9 g/dL (30.0-36.0); Mean Corpuscular Volume 94.4 fl (81-99); Mean Platelet Volume 9.9 fL (7.4-10.4); Monocytes # 0.4 10^3/uL (0.2-0.9); Neutrophils # 3.49 10^3/uL (1.8-7.7); Neutrophils % 62.5 %; Nucleated Red Blood Cells % 0 %; Platelet Count 239 10^3/cmm (130-400); Red Blood Count 4.48 10^6/uL (4.1-5.3); Red Cell Distribution Width 13.8 % (12.1-15.1); White Blood Count 5.6 10^3/uL (4.0-10.0)
[2022-04-24 09:35] LABS: Alanine Aminotransferase 13 U/L (0-33); Albumin Level 4.3 g/dL (3.5-5.2); Alkaline Phosphatase 61 U/L (35-105); Anion Gap 14.7 (5-19); Aspartate Amino Transferase 16 U/L (0-32); Blood Urea Nitrogen 13 mg/dL (8-23); Calcium 9.4 mg/dL (8.5-10.5); Carbon Dioxide 29 mmol/L (22-29); Chloride 103 mmol/L (98-107); Globulin 2.8 g/dL (1.3-4.6); Glucose 116 mg/dL (65-115); Osmolality Calculated 297 mOsm/kg (285-295); Potassium 3.7 mmol/L (3.5-5.1); Sodium 143 mmol/L (136-145); Total Bilirubin 1.1 mg/dL (0.15-1.2); Total Protein 7.1 g/dL (6.6-8.7)
== END 2022-05-22 23:59 | disposition home or self-care (01) ==
PROVIDERS: PCP Family Medicine; Visit Provider Internal Medicine Hematology & Oncology
DX: Z08 Encounter for follow-up examination after completed treatment for malignant neoplasm (principal); Z85.3 Personal history of malignant neoplasm of breast; Z90.11 Acquired absence of right breast and nipple; M25.511 Pain in right shoulder; Z79.890 Hormone replacement therapy
CPT/HCPCS: 36415; 80053; 85025; 99214

== ENCOUNTER 2022-10-01 10:24 | Outpatient (CLI) | payer MEDICARE, SELFPAY ==
--- NOTE | 2022-10-01 10:39 | MM_ITS ---
WS: [id number] LEFT DIGITAL TOMOSYNTHESIS MAMMOGRAPHY WITH CAD. HISTORY: HX OF BREAST CA;RT MST COMPARISON: 08/26/2021, 09/17/2020 and 09/16/2018 Technique: CC, MLO and ML views. Breast composition: There are scattered areas of fibroglandular density. Breast arterial calcificati ons. There are a few benign scattered calcification. 7 mm mass with calcified wall 12:00 has decrease d in size since 08/26/2021. Consistent with an oil cyst. MM/[place] [id number] IMPRESSION: BI-RADS: 2-Benign FOLLOW UP: 1 Year Follow-up
== END 2022-10-01 10:25 | disposition home or self-care (01) ==
LOC: RAD 10:24
PROVIDERS: PCP Family Medicine; Visit Provider Family Medicine
DX: Z08 Encounter for follow-up examination after completed treatment for malignant neoplasm (principal); Z85.3 Personal history of malignant neoplasm of breast
CPT/HCPCS: 77061; G0279

== ENCOUNTER 2022-10-27 12:50 | Oncology outpatient (recurring) (ONCR) | payer MEDICARE, SELFPAY ==
[2022-10-27 13:13] LABS: Basophils # 0.1 10^3/uL (0.0-0.1); Basophils % 0.8 %; Eosinophils # 0.1 10^3/uL (0.0-0.8); Eosinophils % 1.7 %; Hematocrit 44.2 % (37.0-47.0); Hemoglobin 14.3 g/dL (11.5-15.3); Lymphocytes # 1.6 10^3/uL (0.8-4.8); Lymphocytes % 25.5 %; Mean Corpuscular HGB Conc 32.4 g/dL (30.0-36.0); Mean Corpuscular Hemoglobin 29.9 pg (28.0-34.0); Mean Corpuscular Volume 92.5 fl (81-99); Mean Platelet Volume 9.8 fL (7.4-10.4); Monocytes # 0.4 10^3/uL (0.2-0.9); Monocytes % 6.7 %; Neutrophils # 4.13 10^3/uL (1.8-7.7); Neutrophils % 64.7 %; Nucleated Red Blood Cells % 0 %; Platelet Count 228 10^3/cmm (130-400); Red Blood Count 4.78 10^6/uL (4.1-5.3); Red Cell Distribution Width 13.5 % (12.1-15.1); White Blood Count 6.4 10^3/uL (4.0-10.0)
[2022-10-27 13:31] LABS: Alanine Aminotransferase 15 U/L (0-33); Albumin Level 4.3 g/dL (3.5-5.2); Alkaline Phosphatase 54 U/L (35-105); Anion Gap 15.5 (5-19); Aspartate Amino Transferase 19 U/L (0-32); Blood Urea Nitrogen 14 mg/dL (8-23); Calcium 9.5 mg/dL (8.5-10.5); Carbon Dioxide 28 mmol/L (22-29); Chloride 99 mmol/L (98-107); Globulin 3.1 g/dL (1.3-4.6); Glucose 116 mg/dL (65-115); Osmolality Calculated 289 mOsm/kg (285-295); Potassium 3.5 mmol/L (3.5-5.1); Sodium 139 mmol/L (136-145); Total Bilirubin 0.9 mg/dL (0.15-1.2); Total Protein 7.4 g/dL (6.6-8.7)
== END 2022-11-20 23:59 | disposition home or self-care (01) ==
PROVIDERS: PCP Family Medicine; Visit Provider Internal Medicine Hematology & Oncology
DX: Z08 Encounter for follow-up examination after completed treatment for malignant neoplasm (principal); Z85.3 Personal history of malignant neoplasm of breast; Z90.11 Acquired absence of right breast and nipple; Z92.23 Personal history of estrogen therapy
CPT/HCPCS: 36415; 80053; 85025; 99213; 99214

== ENCOUNTER 2023-04-29 12:19 | Oncology outpatient (recurring) (ONCR) | payer MEDICARE, SELFPAY ==
[2023-04-29 12:20] VITALS: BP 190/82; PULSE 70; RESP 18; TEMP 36.5; O2SAT 97
[2023-04-29 12:31] LABS: Basophils % 0.7 %; Eosinophils # 0.1 10^3/uL (0.0-0.8); Eosinophils % 1.7 %; Hematocrit 42.8 % (36-47); Lymphocytes # 1.5 10^3/uL (0.8-4.8); Lymphocytes % 24.6 %; Mean Corpuscular HGB Conc 32.7 g/dL (30-55); Mean Corpuscular Hemoglobin 29.9 pg (27-33); Mean Corpuscular Volume 91.5 fl (85-98); Mean Platelet Volume 9.5 fL (7.4-10.4); Monocytes # 0.4 10^3/uL (0.2-0.9); Monocytes % 6.9 %; Neutrophils # 3.92 10^3/uL (1.8-7.7); Neutrophils % 65.6 %; Nucleated Red Blood Cells % 0 %; Platelet Count 221 10^3/cmm (157-399); Red Blood Count 4.68 10^6/uL (3.85-5.65); Red Cell Distribution Width 13.5 % (12.1-15.1); White Blood Count 5.97 10^3/uL (3.29-11.43)
[2023-04-29 12:50] LABS: Alanine Aminotransferase 16 U/L (0-33); Albumin Level 4.7 g/dL (3.5-5.2); Alkaline Phosphatase 55 U/L (35-105); Anion Gap 13.7 (5-19); Aspartate Amino Transferase 16 U/L (0-32); Blood Urea Nitrogen 13 mg/dL (8-23); Calcium 9.5 mg/dL (8.5-10.5); Carbon Dioxide 29 mmol/L (22-29); Chloride 101 mmol/L (98-107); Globulin 2.8 g/dL (1.3-4.6); Glucose 117 mg/dL (65-115); Osmolality Calculated 291 mOsm/kg (285-295); Potassium 3.7 mmol/L (3.5-5.1); Sodium 140 mmol/L (136-145); Total Bilirubin 1.1 mg/dL (0.15-1.2); Total Protein 7.5 g/dL (6.6-8.7)
== END 2023-05-22 23:59 | disposition home or self-care (01) ==
PROVIDERS: Internal Medicine Medical Oncology; PCP Family Medicine; Visit Provider Internal Medicine Hematology & Oncology
DX: C50.919 Malignant neoplasm of unspecified site of unspecified female breast; Z90.11 Acquired absence of right breast and nipple; Z92.23 Personal history of estrogen therapy; I10 Essential (primary) hypertension; E78.5 Hyperlipidemia, unspecified; Z17.1 Estrogen receptor negative status [ER-]; Z53.9 Procedure and treatment not carried out, unspecified reason
CPT/HCPCS: 36415; 80053; 85025; 99214

== ENCOUNTER 2023-10-05 08:40 | Outpatient (CLI) | payer MEDICARE, SELFPAY ==
--- NOTE | 2023-10-05 08:47 | MM_ITS ---
WS: [id number] LEFT DIGITAL TOMOSYNTHESIS MAMMOGRAPHY WITH CAD. HISTORY: Follow up, history RIGHT breast cancer. Mastectomy. COMPARISON: 10/01/2022, 08/26/2021, 09/17/2020 Technique: CC, MLO and ML views. Breast composition: There are scattered areas of fibroglandular density. Moderate breast arterial myra cifications and circular calcification associated with fat necrosis. No mass or distortion. IMPRESSION: MM/[place] [id number] BI-RADS: 2-Benign FOLLOW UP: 1 Year Follow-up
== END 2023-10-05 08:41 | disposition home or self-care (01) ==
LOC: RAD 08:40
PROVIDERS: PCP Family Medicine; Visit Provider Internal Medicine Medical Oncology
DX: Z85.3 Personal history of malignant neoplasm of breast (principal); Z90.11 Acquired absence of right breast and nipple; R92.322 Mammographic fibroglandular density, left breast; R92.1 Mammographic calcification found on diagnostic imaging of breast
CPT/HCPCS: 77061; G0279

== ENCOUNTER 2023-11-02 10:49 | Oncology outpatient (recurring) (ONCR) | payer MEDICARE, SELFPAY ==
[2023-11-02 11:46] LABS: Basophils # 0.1 10^3/uL (0.0-0.1); Eosinophils # 0.1 10^3/uL (0.0-0.8); Eosinophils % 1.4 %; Hematocrit 43.1 % (36-47); Lymphocytes # 1.4 10^3/uL (0.8-4.8); Lymphocytes % 23.6 %; Mean Corpuscular HGB Conc 32.9 g/dL (30-55); Mean Corpuscular Hemoglobin 30.2 pg (27-33); Mean Corpuscular Volume 91.7 fl (85-98); Mean Platelet Volume 10.2 fL (7.4-10.4); Monocytes # 0.5 10^3/uL (0.2-0.9); Monocytes % 7.6 %; Neutrophils # 3.91 10^3/uL (1.8-7.7); Neutrophils % 66.1 %; Nucleated Red Blood Cells % 0 %; Platelet Count 233 10^3/cmm (157-399); Red Cell Distribution Width 13.7 % (12.1-15.1); White Blood Count 5.92 10^3/uL (3.29-11.43)
[2023-11-02 12:04] LABS: Alanine Aminotransferase 13 U/L (0-33); Albumin Level 4.4 g/dL (3.5-5.2); Alkaline Phosphatase 58 U/L (35-105); Anion Gap 14.6 (5-19); Aspartate Amino Transferase 16 U/L (0-32); Blood Urea Nitrogen 16 mg/dL (8-23); Calcium 9.3 mg/dL (8.5-10.5); Carbon Dioxide 28 mmol/L (22-29); Chloride 98 mmol/L (98-107); Glucose 116 mg/dL (65-115); Osmolality Calculated 286 mOsm/kg (285-295); Potassium 3.6 mmol/L (3.5-5.1); Sodium 137 mmol/L (136-145); Total Protein 7.4 g/dL (6.6-8.7)
== END 2023-11-21 23:59 | disposition home or self-care (01) ==
PROVIDERS: Nurse Practitioner Family; PCP Family Medicine; Visit Provider Internal Medicine Hematology & Oncology
DX: Z08 Encounter for follow-up examination after completed treatment for malignant neoplasm (principal); Z85.3 Personal history of malignant neoplasm of breast; Z90.11 Acquired absence of right breast and nipple; Z92.23 Personal history of estrogen therapy; Z53.9 Procedure and treatment not carried out, unspecified reason
CPT/HCPCS: 36415; 80053; 85025; 99213

== ENCOUNTER → 2024-09-07 08:42 | Outpatient (BNVA) | payer MEDICARE, SELFPAY | PROVIDERS: PCP Family Medicine; Visit Provider Family Medicine | DX: I10 Essential (primary) hypertension (principal); E78.5 Hyperlipidemia, unspecified; F32.A Depression, unspecified; C50.919 Malignant neoplasm of unspecified site of unspecified female breast | CPT/HCPCS: 80053; 80061 ==

== ENCOUNTER 2024-10-24 09:14 | Outpatient (CLI) | payer MEDICARE, SELFPAY ==
--- NOTE | 2024-10-24 09:40 | MM_ITS ---
WS: [id number] LEFT DIGITAL TOMOSYNTHESIS MAMMOGRAPHY WITH CAD. HISTORY: hx of breast ca, RIGHT mastectomy. COMPARISON: 10/05/2023, 10/01/2022 and 08/26/2021 Technique: CC, MLO and ML views. Breast composition: There are scattered areas of fibroglandular density. Scattered vascular and punctate calcifications. No mass identified. No areas of architectural distortion. No nipple retraction. MM/MM diag LT tomosynthesis [id number] IMPRESSION: BI-RADS: 2 - Benign. FOLLOW UP: 1 Year Follow-up
== END 2024-10-24 09:15 | disposition home or self-care (01) ==
LOC: RAD 09:16
PROVIDERS: PCP Family Medicine; Visit Provider Family Medicine
DX: Z85.3 Personal history of malignant neoplasm of breast (principal); Z98.890 Other specified postprocedural states; R92.322 Mammographic fibroglandular density, left breast; R92.1 Mammographic calcification found on diagnostic imaging of breast
CPT/HCPCS: 77061; G0279

== ENCOUNTER → 2025-04-16 07:57 | Outpatient (BNVA) | payer MEDICARE, SELFPAY | PROVIDERS: PCP Family Medicine; Visit Provider Dermatology | DX: L72.0 Epidermal cyst (principal) | CPT/HCPCS: 99204 ==